=== PATIENT | female | born 1960 | race Caucasian/White ===

== ENCOUNTER → 2016-10-30 | Outpatient (CLI) | payer OTHER ==
--- NOTE | 2016-10-30 14:48 | CT ---
CT Right Lower Extremity History: Preoperative evaluation for right total hip replacement. Comparison: Hip radiographs June 12, 2016, MR right hip August 11, 2016. Technique: Spiral imaging was obtained through the right hip at 1.25 mm slice thickness along with sp iral imaging through the right knee at 2.5 mm slice thickness. Data was transmitted for subsequent [facility] hip replacement. Dose reduction techniques were utilized. Findings: Moderate to severe osteoarthritis is again noted in the right hip with joint space narrowin g, subchondral sclerosis and osteophyte formation, with a large geode in the superior right acetabulu m. There is fragmentation of the lateral aspect of the acetabulum, with a lucent fracture line (serie s 2 image 204). Minimal colonic diverticulosis is present without evidence of diverticulitis. Atheros clerosis is noted. There is mild degenerative change in the knee . Impression: 1. Large right superior acetabular geode as seen on MRI, with a nondisplaced fracture line in the sup erolateral right acetabulum. 2. Moderate to severe osteoarthritis in the right hip. Data was transmitted for subsequent [facility] hip r eplacement surgery. 3. Additional findings as above.
== END ==
LOC: FIMAGING 07:55
PROVIDERS: ATTEND Orthopaedic Surgery
DX: Z01.818 Encounter for other preprocedural examination (principal); M16.11 Unilateral primary osteoarthritis, right hip

== ENCOUNTER 2016-11-06 09:58 | Inpatient (IN) | payer OTHER ==
[~2016-11-06 09:58] MED LIST: ACETAMINOPHEN 325 MG TAB PO ONE; CEFAZOLIN 2 GM/DEXTR 100 ML IV ONE; CHLORHEXIDINE GLUC HIBICLENS 118 ML BTL TP ONE; DEXAMETHASONE 4 MG/ML VIAL IVP ONE; FAMOTIDINE 20 MG TAB PO ONE; ROPI/epiNEPH/KETOROLAC JOINT COCKTAIL IU ONE; SKIN ADHESIVE (DERMABOND) 1 EACH TP ONE; TRANEXAMIC ACID 3,000 MG in NS 50 ML IRR ONE; TRANEXAMIC ACID 3,000 MG/50 ML BAG IRR ONE
[2016-11-06] MEDS ORDERED: CEFAZOLIN 2 GM/DEXTROSE/100 ML BAG IV ONE (10:54)
[2016-11-06] MEDS ORDERED: DEXAMETHASONE 4 MG/ML VIAL ONE (10:56)
[2016-11-06] MEDS ORDERED: FAMOTIDINE 20 MG TAB ONE (10:56)
[2016-11-06] MEDS ORDERED: LIDOCAINE 1% 5 ML SDV ONE (10:57)
[2016-11-06] MEDS ORDERED: fentaNYL 100 MCG/2 ML INJ ONE ×5 (12:04→16:37)
[2016-11-06] MEDS ORDERED: PROPOFOL/EMULSION 500 MG/50 ML BOTTLE IV ONE ×2 (12:05→13:02)
[2016-11-06] MEDS ORDERED: MIDAZOLAM 2 MG/2 ML VIAL ONE (12:23)
[2016-11-06] MEDS ORDERED: ALBUTEROL IH PRN (12:51)
[2016-11-06] MEDS ORDERED: diphenhydrAMINE 25 MG CAP PO PRN (12:51)
[2016-11-06] MEDS ORDERED: PROMETHAZINE HCL 25 MG SUPPR PR PRN (12:51)
[2016-11-06] MEDS ORDERED: ONDANSETRON DISINTEGRATING 4 MG TAB PO PRN (12:51)
[2016-11-06] MEDS ORDERED: TEMAZEPAM 15 MG CAP PO PRN (12:51)
[2016-11-06] MEDS ORDERED: PROMETHAZINE HCL 25 MG/ML INJ IVP PRN (12:51)
[2016-11-06] MEDS ORDERED: DIPHENOXYLATE/ATROPINE LOMOTIL 1 TAB PO PRN (12:51)
[2016-11-06] MEDS ORDERED: ONDANSETRON 4 MG/2 ML VIAL IVP PRN (12:51)
[2016-11-06] MEDS ORDERED: MAGNESIUM HYDROXIDE 30 ML UDCUP PO PRN (12:51)
[2016-11-06] MEDS ORDERED: PHARMACY PAIN CONSULT 1 EA MISC PRN (12:51)
[2016-11-06] MEDS ORDERED: LACTULOSE 20 GM/30 ML UDCUP PO PRN (12:51)
[2016-11-06] MEDS ORDERED: POLYETHYLENE GLYCOL 3350 17 GM PKT PO PRN (12:51)
[2016-11-06] MEDS ORDERED: BISACODYL 10 MG SUPP PR PRN (12:51)
[2016-11-06] MEDS ORDERED: PROPOFOL 200 MG/20 ML VIAL ONE (13:41)
[2016-11-06] MEDS ORDERED: ceFAZolin 2 GM/DEXTROSE 100 ML IV SCH (14:00)
--- NOTE | 2016-11-06 14:00 | POSTOPPROG ---
Post Op Note Date of Operation: 11/06/16 Surgeon: Zach Kirk Senior Stock Plan Administrator: Dona Kirk PAc Anesthesiologist: Rei Anesthesia: Spinal Pre-op Diagnosis: R hip DJD Post-op Diagnosis: same Indication: Pain Procedure: R LIBORIO Findings: DJD and cyst Inf/Abcess present in the surg proc area at time of surgery?: No EBL: 100-500
--- NOTE | 2016-11-06 14:43 | DX ---
Pelvis single view History: Right hip arthroplasty. Postoperative evaluation. Findings: Postsurgical changes are seen of a right total hip arthroplasty. There is good alignment a nd appearance. No evidence for periprosthetic lucency or fracture. There is appropriate soft tissue c hange for the immediate postsurgical appearance. Impression: Postsurgical changes of a right total hip arthroplasty with good alignment and appearanc e.
--- NOTE | 2016-11-06 17:26 | DX ---
Intraoperative fluoroscopy during right hip arthroplasty. November 06, 2016. Discussion: 4.9 seconds of intraoperative fluoroscopy utilized by Dr. Kirk during right hip arth roplasty. AP matrix radiograph obtained during the procedure demonstrates a right hip arthroplasty in progress. Impression: 1. Intraoperative fluoroscopy during right hip arthroplasty.
[2016-11-06] MEDS: LR 1,000 ML IV SCH (18:39)
[2016-11-06] MEDS: CYCLOBENZAPRINE 10 MG TAB PO PRN (19:22)
[2016-11-06] MEDS ORDERED: ATORVASTATIN CALCIUM 20 MG PO SCH (21:00)
[2016-11-06] MEDS ORDERED: traZODone 50 MG TAB PO SCH (21:00)
[2016-11-06] MEDS: FLUTICASONE IH SCH (21:17)
[2016-11-06] MEDS: SALMETER IH SCH (21:17)
[2016-11-06] MEDS: oxyCODONE IR 5 MG TAB PO PRN (21:52)
[2016-11-06] MEDS: ASPIRIN 325 MG TAB PO SCH (21:53)
[2016-11-06] MEDS: ACETAMINOPHEN 325 MG TAB PO SCH ×2 (21:54→23:56)
[2016-11-06] MEDS: SENNOSIDES/DOCUSATE SODIUM TAB PO SCH (21:56)
[2016-11-06] MEDS: ceFAZolin 2 GM in D5W 100 ML IV SCH (21:59)
[2016-11-06] MEDS: FAMOTIDINE 20 MG TAB PO SCH (22:10)
[2016-11-07] MEDS: oxyCODONE IR 5 MG TAB PO PRN ×2 (02:31→08:08)
[2016-11-07] MEDS: LR 1,000 ML IV SCH (02:34)
[2016-11-07 04:49] LABS: HEMATOCRIT 31.7 % (38.0-47.0); HEMOGLOBIN 10.3 g/dL (12.6-16.3)
[2016-11-07] MEDS: ACETAMINOPHEN 325 MG TAB PO SCH (05:02)
[2016-11-07] MEDS: ceFAZolin 2 GM in D5W 100 ML IV SCH (05:03)
[2016-11-07] MEDS: CYCLOBENZAPRINE 10 MG TAB PO PRN (05:07)
[2016-11-07 07:40] VITALS: BP 111/64; PULSE 67; RESP 14; TEMP 98.5
[2016-11-07] MEDS: ASPIRIN 325 MG TAB PO SCH (08:08)
[2016-11-07] MEDS: FAMOTIDINE 20 MG TAB PO SCH (08:09)
[2016-11-07] MEDS: SENNOSIDES/DOCUSATE SODIUM TAB PO SCH (08:09)
[2016-11-07] MEDS ORDERED: ANASTROZOLE 1 MG PO SCH (09:00)
[2016-11-07] MEDS ORDERED: ENOXAPARIN 40 MG/0.4 ML SYR SC SCH (09:00)
[2016-11-07] MEDS ORDERED: FLUOXETINE 40 MG PO SCH (09:00)
--- NOTE | 2016-11-07 09:23 | SOAPPROG ---
SOAP Progress Note Assessment/Plan: Assessment: Patient is doing well POD 1 s/p R LIBORIO 1.Pain management: pain is well controlled on oral pain meds 2.Anemia: level is expected initially postop. Asymptomatic. Cont to monitor for symptoms 3.VTE ppx: recommend aspirin 325mg daily. Cont JOSE DANIEL hosjoselyn and SCD 4. d/c planning: d/c to home today pending release from PT. 5. muscle spasms: flexeril script sent to patient's pharmacy. Plan: 11/07/16 09:22 Subjective: Мария is doing well today, denies SOB, chest pain and N/V. Objective: Vital Signs Temp Pulse Resp BP Pulse Ox 36.9 C 67 14 111/64 92 11/07/16 07:39 11/07/16 07:39 11/07/16 07:39 11/07/16 07:39 11/07/16 07:39 Laboratory Results 11/07/16 04:28 11/06/16 11/07/16 11/08/16 05:59 05:59 05:59 Intake Total 3840 1400 Output Total 2450 300 Balance 1390 1100 RLE: incision dressing is clean and dry, NVI, +pf/df ICD10 Worksheet Patient Problems: Problems Problem Status Diagnosed Primary localized osteoarthritis of right hip Acute
[2016-11-07] MEDS: FLUTICASONE IH SCH (09:41)
[2016-11-07] MEDS: SALMETER IH SCH (09:41)
--- NOTE | 2016-11-07 11:01 | GOP ---
[f rep st] OPERATIVE REPORT DATE OF OPERATION: 11/06/2016 SURGEON: Aida Kirk MD FREIGHT AGENT: Dona Kirk PA-C. ANESTHESIA: Spinal. PREOPERATIVE DIAGNOSIS: Right hip osteoarthritis. POSTOPERATIVE DIAGNOSIS: Right hip osteoarthritis. PROCEDURE PERFORMED: Right total hip arthroplasty. FINDINGS: ESTIMATED BLOOD LOSS: 200 cc. IMPLANTS: Accolade II size 2 at 127, acetabular component a 48 mm Tritanium. The liner is a Trident X3 32 mm. The head is a Biolox Delta 32 mm +0. INDICATIONS: The patient has progressively worsening arthritis of the hip which has failed medical management. The patient understands the treatment options including continued non-operative care and has selected surgical intervention. The patient has decided to undergo total hip arthroplasty via the direct anterior approach, understanding the risks of the procedure including, but not limited to, neurovascular injury, infection, persistent pain, component wear and loosening, deep venous thrombosis, pulmonary embolism, limb length inequality, hip instability (including dislocation), and intra-operative fractures. DESCRIPTION OF PROCEDURE: After proper identification of the patient including verification and marking the surgical site, the patient was brought to the operating room and placed in the supine position. All bony prominences were well padded. Anesthesia was induced without complication and intravenous prophylactic antibiotics were administered prior to skin incision. The operative leg was placed in the Trumpf Arch table extension and the well leg in a Yellowfin leg silveira. The patient was prepped and draped in the usual sterile fashion. The C-arm was draped for intra-operative fluoroscopy to check acetabular position, femoral component position including leg length and femoral offset. Attention was then drawn to surgical exposure of the hip. An incision was made with a #10 Bard Blaze blade starting 3 cm lateral and 3 cm distal to the anterior superior iliac spine measuring 8-10 cm and coursing distally toward the greater trochanter. The skin and subcutaneous tissues were divided sharply down to the fascia naeem. The fascia naeem was incised in line with the skin incision exposing the underlying tensor fascia naeem muscle. The muscle was bluntly elevated from the fascia and the first extracapsular Cobra retractor was placed laterally at the junction of the superior femoral neck and greater trochanter. The lateral femoral circumflex vessels were identified, cauterized, and divided with the Aquamantys bipolar cautery. The deep investing fascia of the TFL was divided to allow proper mobilization of the muscle preventing damage during the retraction. The reflected head of the rectus femoris muscle was elevated off the anterior hip capsule and a medial Cobra retractor was placed just proximal to the lesser trochanter. The anterior capsulotomy was made sharply from the superolateral acetabulum to the saddle junction of the superior femoral neck and greater trochanter, then coursing inferomedial towards the lesser trochanter. The retractors were then placed in the intracapsular position for femoral neck osteotomy. Corresponding to pre-operative templating, the osteotomy was made with the oscillating saw carefully protecting the greater trochanter and soft tissues. The femoral head was removed from the acetabulum with a corkscrew and confirmed to be severely arthritic with exposed bone, deformity and osteophytes. Similar findings were confirmed in the acetabulum. The Arch table extension was then placed in 40 degrees external rotation. Attention was then drawn to the acetabular preparation. After placement of the anterior and posterior Cobra retractors outside the labrum and intracapsular, the circumferential labrum was removed sharply. The foveal contents were then removed and hemostasis obtained with cautery. The first reamer selected was sized using the removed femoral head. Reaming began with medialization and then commenced in 2 mm increments at 45 degrees of abduction and 15 degrees of anteversion using fluoroscopic navigation. Reaming ceased 1 mm less than the definitive acetabular component and corresponded to the pre-operative templating. The final acetabular component was inserted using fluoroscopy to achieve proper orientation yielding excellent purchase and stability in the acetabulum. The final acetabular liner was then placed and its seating confirmed. Attention was then turned to the femur. The Arch table extension was placed in extension and adduction, delivering the osteotomized femoral neck into the wound. A 2-pronged femoral elevator was placed at the calcar and another at the tip of the greater trochanter. The posterolateral capsule was released with cautery allowing mobilization of the femur lateral and anterior for preparation. The external rotators were visualized and preserved. A curette and rongeur were used to open the starting point for broaching. Serial broaching started with the #0 broach and ended with the broach that exhibited excellent fit in the proximal femur. A change in pitch during mallet strikes was accompanied by the inability to advance the broach any further. The trial reduction was performed and fluoroscopic navigation was utilized to check limb length. Adjustments were made to equalize limb length accordingly. After the final trials were accepted they were removed and the wound was copiously lavaged. The femoral component was seated to the same depth as the final broach and the femoral head was impacted onto the clean trunion. The hip was then reduced for the final time and once more fluoroscopy was used to check that limb length equality was achieved. The wound was irrigated and closed in layers, the fascia naeem with 2-0 Quill, the subcutaneous tissue with 2-0 Quill, and the skin with Dermabond. Sterile dressings were applied. Final sharps and sponge counts were accurate. The patient was then transferred to a hospital bed and brought to the recovery room in stable condition. Note: A cyst was noted in the acetabulum prior to placement of the cup. This was packed with bone graft as much as was possible. A screw was placed into the acetabular cup for extra stability. When the screw went through the hard bone, the head of the screw actually broke off. This was able to be retrieved and removed without difficulty, but the remaining portion of the screw that was in bone was unable to be extricated. It was felt that there would be more damage done than good to remove or attempt to remove the implanted portion of the screw , so this was left in place. We then placed the liner without difficulty. /[id number]/MODL MTDD
[2016-11-07 12:12] VITALS: O2SAT 96
--- NOTE | 2016-11-07 12:16 | GDS ---
[f rep st] DISCHARGE SUMMARY ADMISSION DIAGNOSIS: Right hip osteoarthritis. DISCHARGE DIAGNOSIS: Right hip osteoarthritis. PROCEDURE: Right total hip arthroplasty. VTE PROPHYLAXIS: Recommend Coumadin and Lovenox due to history of metastatic breast cancer and histo ry of smoker. BRIEF DESCRIPTION OF HOSPITAL STAY: Patient was admitted for an elective joint arthroplasty. The pa marcos tolerated the procedure well and has passed physical therapy. The patient was given appropriat e antibiotic prophylaxis and venous thromboembolism prophylaxis. The patient's pain was well control led on oral pain medication, patient was holding down food, and had urinated. Decision was made to d ischarge the patient. The patient was given post-operative prescriptions pre-operatively. PLAN: Please follow up with Dr. Kirk's office as scheduled on November 26 at 11:00 a.m. /[id number]/MODL
== END 2016-11-07 11:11 | disposition home or self-care (01) | DRG 470 ==
LOC: F3N 09:58
PROVIDERS: ADMIT Orthopaedic Surgery; ATTEND Orthopaedic Surgery
PROC: 0SR904Z Replacement of Right Hip Joint with Ceramic on Polyethylene Synthetic Substitute, Open Approach (ICD-10-PCS; principal; 2016-11-06 12:15)
DX: M16.11 Unilateral primary osteoarthritis, right hip (principal); J45.909 Unspecified asthma, uncomplicated; F32.9 Major depressive disorder, single episode, unspecified; E78.00 Pure hypercholesterolemia, unspecified; K75.9 Inflammatory liver disease, unspecified; F17.200 Nicotine dependence, unspecified, uncomplicated; Z85.3 Personal history of malignant neoplasm of breast
CPT/HCPCS: 97161-GP; 97165-GO; C1713; J0171; J0690; J1100; J1650; J1885; J2250; J2704; J2795; J3010

== ENCOUNTER → 2017-04-11 | Outpatient (CLI) | payer OTHER | LOC: FIMAGING 08:55 | PROVIDERS: ATTEND Internal Medicine Hematology & Oncology | DX: Z12.39 Encounter for other screening for malignant neoplasm of breast (principal); N64.4 Mastodynia; Z85.3 Personal history of malignant neoplasm of breast | CPT/HCPCS: G0204 ==

== ENCOUNTER → 2017-07-25 | Day surgery (SDC) | payer OTHER ==
[~2017-07-25] MED LIST changes: -ACETAMINOPHEN 325 MG TAB PO ONE; +BUPIVACAINE 0.25% 30 ML SDV ONE; -CEFAZOLIN 2 GM/DEXTR 100 ML IV ONE; -CHLORHEXIDINE GLUC HIBICLENS 118 ML BTL TP ONE; +DEPO METHYLPREDNISOLONE 40 MG/ML SDV ONE; -DEXAMETHASONE 4 MG/ML VIAL IVP ONE; -FAMOTIDINE 20 MG TAB PO ONE; -ROPI/epiNEPH/KETOROLAC JOINT COCKTAIL IU ONE; -SKIN ADHESIVE (DERMABOND) 1 EACH TP ONE; -TRANEXAMIC ACID 3,000 MG in NS 50 ML IRR ONE; -TRANEXAMIC ACID 3,000 MG/50 ML BAG IRR ONE
== END | disposition home or self-care (01) ==
LOC: FIMAGING 10:23
PROVIDERS: ATTEND Orthopaedic Surgery
PROC: 3E0U33Z Introduction of Anti-inflammatory into Joints, Percutaneous Approach (ICD-10-PCS; principal; 2017-07-25)
PROC: 3E0U3BZ Introduction of Anesthetic Agent into Joints, Percutaneous Approach (ICD-10-PCS; principal; 2017-07-25)
DX: M46.1 Sacroiliitis, not elsewhere classified (principal); M54.9 Dorsalgia, unspecified
CPT/HCPCS: J1030

== ENCOUNTER → 2018-04-22 | Outpatient (CLI) | payer OTHER | LOC: FIMAGING 09:54 | PROVIDERS: ATTEND Internal Medicine Hematology & Oncology | DX: Z12.31 Encounter for screening mammogram for malignant neoplasm of breast (principal) ==

== ENCOUNTER 2019-03-04 23:03 | Emergency (ER) | payer OTHER ==
--- NOTE | 2019-03-04 23:15 | EDPHY ---
H & P Time Seen by Provider: 03/04/19 23:14 HPI/ROS: CHIEF COMPLAINT: Dysuria and Frequency HISTORY OF PRESENT ILLNESS: Symptoms began yesterday to a mild degree. However this evening he became so bad that she could not ignore it. At 1 point she thought she was not able to get off the toilet as she had perpetual sense that she needed to urinate. She also noted the blood in the urine at this time. Fever none Chills none Rigors none flank pain mild bilateral lower back discomfort abdominal pain none Exposure: No new sexual exposure. She did have a urinary tract infection some 4-5 months ago. The the 1st 2 urinary tract infections in decades REVIEW OF SYSTEMS: Gastrointestinal: No vomiting, no abdominal pain. . Smoking Status: Light smoker Physical Exam: General Appearance: Alert, no distress. Afebrile. Normal phonation. No respiratory distress. Eyes: No icterus ENT, Mouth: Mucous membranes moist normal phonation Abdomen: Soft mild suprapubic tenderness without rebound or guarding. Abdomen is soft. Neurological: Ox3. No motor weakness. Sensation intact. Gait nl. Skin: Warm and dry, no rashes. Musculoskeletal: No joint swelling. Allergies/Adverse Reactions: No Known Allergies Allergy (Unverified 03/04/19 23:20) Home Medications: Medication Instructions Recorded Albuterol [Proventil Inhaler HFA 2 puffs IH DAILY PRN 10/04/16 (*)] Anastrozole [Arimidex 1 mg (*)] 1 mg PO DAILY 10/04/16 Ascorbic Acid [Vitamin C 500 mg 1,000 mg PO DAILY 10/04/16 (*)] Atorvastatin Calcium [Lipitor 20 20 mg PO HS 10/04/16 mg (*)] Fluticasone/Salmeter 250/50Mcg 2 puffs IH BID 10/04/16 [Advair 250/50 (*)] Herbals/Supplements -Info Only 1 ea PO DAILY 10/04/16 traZODone [traZODONE 50MG (*)] 50 mg PO HS 10/04/16 IBUPROFEN 400 mg PO DAILY 07/22/17 Nitrofurantoin Macrobid [Macrobid] 100 mg PO BID #10 cap 03/04/19 Phenazopyridine HCl [Pyridium] 200 mg PO TID #6 tab 03/04/19 Medical Decision Making ED Course/Re-evaluation: We had discussion for going on antibiotic except back to complete resolution in 2 days time. In the interim should be on Pyridium for symptomatic management. I have also asked her call her PCP in 3-4 days time to confirm the culture was indeed positive for infection. If indeed that is not the case and she will need to see a urologist in consultation. Differential Diagnosis: Differential diagnosis includes but is not limited to: Urinary tract infection, pyelonephritis, cystitis, ureterolithiasis, kidney stone, bladder cancer. Departure - Departure Disposition: Home, Routine, Self-Care Clinical Impression: Hemorrhagic cystitis Condition: Good Instructions: Urinary Tract Infection in Women (ED) Additional Instructions: Begin the Pyridium to might. See the prescription. This is also available over the counter as AZO. Five days of nitrofurantoin. In 4 days time, on Friday, call your family physician for the final culture results. If the culture was negative you will need to be seen by a urologist in follow-up Referrals: Aristides Jj MD [Medical Doctor] - As per Instructions Prescriptions: Nitrofurantoin Macrobid [Macrobid] 100 mg PO BID #10 cap Phenazopyridine HCl [Pyridium] 200 mg PO TID #6 tab
[2019-03-04 23:25] VITALS: BP 106/77
[2019-03-04] MEDS ORDERED: NITROFURANTOIN 100MG PREPACK#2 BTL TAKEHOME ONE (23:35)
[2019-03-04] MEDS ORDERED: PHENAZOPYRIDINE HCL 200 MG TAB PO ONE (23:39)
== END 2019-03-04 23:54 | disposition home or self-care (01) ==
LOC: CED 23:03
DX: N30.90 Cystitis, unspecified without hematuria (principal)
CPT/HCPCS: 99284-ER

== ENCOUNTER → 2019-04-09 | Outpatient (CLI) | payer OTHER | LOC: EMCIMAGING 11:20 ==